=== PATIENT | male | born 1970 | race Caucasian/White ===

== ENCOUNTER 2017-03-18 14:15 | Emergency (ER) | payer OTHER ==
--- NOTE | 2017-03-18 15:37 | EDM.PDOC ---
ED HPI GENERAL MEDICAL PROBLEM - General Chief Complaint: General Stated Complaint: LIGHTHEADED Time Seen by Provider: 03/18/17 15:15 Source of Information: Reports: Patient, Family History Limitations: Reports: No Limitations - History of Present Illness INITIAL COMMENTS - FREE TEXT/NARRATIVE: 46-year-old male with a known history of paroxysmal atrial fibrillation was sitting, had "a few beers" after his meal and had a sudden onset of vertigo. [place] the room was spinning, became lightheaded, diaphoretic and nauseated. After 20 minutes he had one emesis. He called his and she came and got him and brought him in the hospital, he is feeling better. He was afraid that he may have redeveloped atrial fibrillation although he had no palpitations, shortness of breath, or chest pain. He does have a full sensation on the left side of his face and a slight left headache. No visual disturbances, speech difficulties, diarrhea or abdominal pain. Onset: Sudden (Suddenly started about an hour and a half ago) Severity: Moderate Associated Symptoms: Reports: Diaphoresis, Headaches, Malaise, Nausea/Vomiting. Denies: Confusion, Chest Pain, Cough, Shortness of Breath - Related Data Allergies Allergy/AdvReac Type Severity Reaction Status Date / Time No Known Allergies Allergy Verified 03/18/17 14:40 Home Meds: Home Meds Albuterol Sulfate [Ventolin Hfa] 03/18/17 [History] Carvedilol [Carvedilol] 25 mg PO BID 03/18/17 [History] Diltiazem HCl [Cardizem] 60 mg PO BID 03/18/17 [History] Dofetilide [Tikosyn] 500 mcg PO BID 03/18/17 [History] Fluticasone/Salmeterol [Advair HFA 115-21 MCG] 2 puff INH BID 03/18/17 [History] Hydrochlorothiazide [Hydrochlorothiazide] 25 mg PO DAILY 03/18/17 [History] Lisinopril [Lisinopril] 20 mg PO BID 03/18/17 [History] Metoprolol Succinate [Toprol XL 100mg] 100 mg PO BID 03/18/17 [History] atorvaSTATin [Lipitor] 10 mg PO DAILY 03/18/17 [History] Past Medical History Cardiovascular History: Reports: Afib, High Cholesterol, Hypertension Respiratory History: Reports: COPD, Sleep Apnea - Infectious Disease History Infectious Disease History: Reports: Chicken Pox Social & Family History - Tobacco Use Smoking Status *Q: Unknown Ever Smoked - Caffeine Use Caffeine Use: Reports: Soda - Recreational Drug Use Recreational Drug Use: No ED ROS GENERAL - Review of Systems Review Of Systems: See Below Constitutional: Reports: Malaise. Denies: Fever HEENT: Reports: Ear Pain (Fullness on the left side, not specific pain) Respiratory: Denies: Shortness of Breath, Cough Cardiovascular: Denies: Chest Pain, Palpitations GI/Abdominal: Reports: Nausea, Vomiting : Reports: No Symptoms Musculoskeletal: Denies: Neck Pain Skin: Reports: Pallor, Diaphoresis (Developed diaphoresis and pallor but that is improved) Neurological: Reports: Headache (Mild left-sided pressure sensation in his head and face), Other (No symptoms of the arms or legs such as weakness, paresthesias or asymmetry) Psychiatric: Reports: No Symptoms ED EXAM, GENERAL - Physical Exam Exam: See Below Exam Limited By: No Limitations General Appearance: Alert, No Apparent Distress Eye Exam: Bilateral Eye: Nystagmus (Patient has definite nystagmus when looking to the right), PERRL Ears: Normal TMs Head: Atraumatic Neck: No: Lymphadenopathy (R), Lymphadenopathy (L) Respiratory/Chest: No Respiratory Distress, Lungs Clear Cardiovascular: Regular Rate, Rhythm GI/Abdominal: Non-Tender Extremities: Normal Inspection Neurological: Alert, Oriented, No Motor/Sensory Deficits Psychiatric: Normal Affect, Normal Mood Skin Exam: Warm, Dry Course - Vital Signs Last Recorded V/S: Last Vital Signs Temp 95.9 F 03/18/17 14:46 Pulse 56 L 03/18/17 14:46 Resp 18 03/18/17 14:46 BP 140/75 03/18/17 14:46 Pulse Ox 96 03/18/17 14:46 - Orders/Labs/Meds Orders: Active Orders 24 hr Category Date Time Status Head wo Cont [CT] Stat Exams 03/18/17 15:32 Taken Labs: Laboratory Tests 03/18/17 03/18/17 Range/Units 15:46 15:46 WBC 17.2 H (4.5-11.0) K/uL RBC 5.20 (4.30-5.90) M/uL Hgb 14.1 (12.0-15.0) g/dL Hct 42.9 (40.0-54.0) % MCV 83 (80-98) fL MCH 27 (27-31) pg MCHC 33 (32-36) % Plt Count 285 (150-400) K/uL Neut % (Auto) 80 H (36-66) % Lymph % (Auto) 8 L (24-44) % [place] % (Auto) 8 H (2-6) % Eos % (Auto) 3 (2-4) % Baso % (Auto) 0 (0-1) % Sodium 137 L (140-148) mmol/L Potassium 3.7 (3.6-5.2) mmol/L Chloride 99 L (100-108) mmol/L Carbon Dioxide 29 (21-32) mmol/L Anion Gap 12.7 (5.0-14.0) mmol/L BUN 18 (7-18) mg/dL Creatinine 0.9 (0.8-1.3) mg/dL Est Cr Clr Drug Dosing 112.57 mL/min Estimated GFR (MDRD) > 60 (>60) Glucose 114 H (74-106) mg/dL Calcium 9.1 (8.5-10.1) mg/dL Total Bilirubin 0.6 (0.2-1.0) mg/dL AST 21 (15-37) U/L ALT 42 (12-78) U/L Alkaline Phosphatase 73 (46-116) U/L Total Protein 7.8 (6.4-8.2) g/dL Albumin 3.7 (3.4-5.0) g/dL Globulin 4.1 H (2.3-3.5) g/dL Albumin/Globulin Ratio 0.9 L (1.2-2.2) - Re-Assessments/Exams Free Text/Narrative Re-Assessment/Exam: 03/18/17 15:55 With the sudden onset of symptoms and the right-sided nystagmus I explained to the patient by far the most likely explanation is an inner ear source. With the dull left-sided headache however a CT scan was worthwhile. CBC and CMP were obtained, and the patient was sent back for a CT the head without contrast. 03/18/17 16:[address] was negative. The patient continued to have some mild to moderate vertigo so an Eppley maneuver was attempted but didn't really change his symptoms. Patient was still having some nausea and occasional emesis. Labs returned very reassuring. He was discharged on oral Zofran and meclizine, will return if he develops more concerning neurologic symptoms which we discussed or recheck in 48 hours if not improved. Departure - Departure Time of Disposition: 17:19 Disposition: Home, Self-Care 01 Condition: Good Clinical Impression: Vertigo - Discharge Information Instructions: Vertigo, [id number] Referrals: PCP,None [Primary Care Provider] - Forms: ED Department Discharge Care Plan Goals: Use Zofran under your tongue every 6-8 hours for nausea, and chew on meclizine every 6-8 hours for dizziness. Increase activity and diet as tolerated and consider rechecking in 2-3 days if not improving satisfactorily. He should also return if worsening such as difficulty with vision or speech, weakness of an arm or leg or other concerning symptoms. - My Orders Last 24 Hours: My Active Orders 03/18/17 15:32 Head wo Cont [CT] Stat - Assessment/Plan Last 24 Hours: My Active Orders 03/18/17 15:32 Head wo Cont [CT] Stat
== END 2017-03-18 17:19 | disposition home or self-care (01) ==
LOC: JP.ED 14:15
DX: R42 Dizziness and giddiness (principal); I48.0 Paroxysmal atrial fibrillation; I10 Essential (primary) hypertension; E78.00 Pure hypercholesterolemia, unspecified; J44.9 Chronic obstructive pulmonary disease, unspecified; Z79.899 Other long term (current) drug therapy
CPT/HCPCS: 36415; 70450; 80053; 85025; 99284-25